=== PATIENT | male | born 2000 | race Caucasian/White ===

== ENCOUNTER → 2024-01-21 11:01 | Outpatient (REF) | payer OTHER, SELFPAY | LOC: MRI 3T 11:01 | PROVIDERS: ATTENDING PHYSICIAN Nurse Practitioner Adult Health; FAMILY PHYSICIAN Physician Assistant Medical | DX: G43.111 Migraine with aura, intractable, with status migrainosus (principal); H53.9 Unspecified visual disturbance | CPT/HCPCS: 70544; 70553; A9575 ==